=== PATIENT | female | born 1975 | race Caucasian/White ===

== ENCOUNTER 2019-12-09 18:08 | Emergency (ER) | payer BC ==
[~2019-12-09] VITALS: Ht 170.2 cm; Wt 64.0 kg
[2019-12-09] MEDS ORDERED: LORAZEPAM 1 MG TABLET ONE (18:36)
[2019-12-09 18:37] LABS: BASOPHILS # (AUTO) 0.1 /CMM (0.0-0.2); BASOPHILS % (AUTO) 0.8 % (0.0-2.0); EOSINOPHILS % (AUTO) 0.5 % (0.0-6.0); HEMATOCRIT 39 % (33-45); HEMOGLOBIN 12.8 g/dL (11.5-14.8); LYMPHOCYTES # (AUTO) 1.4 /CMM (0.8-4.8); LYMPHOCYTES % (AUTO) 19.2 % (20.0-44.0); MEAN CORPUSCULAR HGB CONC 33 g/dl (31.0-36.0); MEAN CORPUSCULAR VOLUME 84 fL (82-100); MONOCYTES # (AUTO) 0.2 /CMM (0.1-1.30); MONOCYTES % (AUTO) 2.7 % (2.0-12.0); NEUTROPHILS # (AUTO) 5.7 /CMM (1.8-8.9); NEUTROPHILS % (AUTO) 76.8 % (43.0-81.0); PLATELET COUNT (AUTO) 277 /CMM (150-450); RED BLOOD CELL COUNT(AUTO) 4.64 MIL/uL (4.0-5.2); WHITE BLOOD COUNT (AUTO) 7.4 K/uL (4.3-11.0)
[2019-12-09] MEDS: LORAZEPAM 1 MG TABLET PO ONE (18:40)
--- NOTE | 2019-12-09 18:41 | NUR ---
[id number], c/o R sided weakness, difficulty forming words since 1630. 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 PT AAOX4, VSS. RR EVEN & UNLABORED. DENIES CP, SOB, DIZZINESS, N/V AT THIS TIME. NO FACIAL DROOP, SPEAKING IN FULL SENTENCES, NO VISUAL CHANGES, NO ARM/LEG DRIFTING @ THIS TIME. PT SEEN & EVAL'D BY MANDI CHOU. PLACED ON [employer] ASSISTANT, SR. MEDICATED FOR ANXIETY, PT VIRGINIE WELL. WILL CONT TO MONITOR.
[2019-12-09 18:44] LABS: CALCIUM, SERUM 9.5 mg/dL (8.5-10.1); CREATININE 0.7 mg/dL (0.6-1.3); POTASSIUM 3.6 mmol/L (3.5-5.1)
[2019-12-09 19:56] VITALS: BP 118/63
== END 2019-12-09 19:56 | disposition home or self-care (01) ==
LOC: ER 18:10
DX: F41.9 Anxiety disorder, unspecified (principal); R53.1 Weakness; H53.8 Other visual disturbances
CPT/HCPCS: 36415; 80048-TC; 85025-TC